=== PATIENT | female | born 1965 | race Caucasian/White ===

== ENCOUNTER 2018-05-28 11:10 | Outpatient (CLI) | payer BC ==
--- NOTE | 2018-05-28 11:59 | RAD ---
RIGHT ANKLE THREE VIEWS: History: Right ankle pain and swelling. FINDINGS/IMPRESSION: Soft tissue swelling is present. The ankle mortise is maintained. No fracture or dislocation or bony destruction is identified. A plantar calcaneal spur is present. POS: OFF
--- NOTE | 2018-05-28 13:15 | RAD ---
RIGHT FOOT THREE VIEWS: 05/28/2018 HISTORY: Pain and swelling. Pain at the plantar aspect of the foot for six months with swelling at the latera l aspect of the right foot. FINDINGS: The Lisfranc joint is normally aligned. There is no fracture-dislocation seen. Plantar calcaneal en thesophyte is seen. IMPRESSION: No acute osseous abnormality right foot. POS: [facility]
== END 2018-05-28 11:11 | disposition home or self-care (01) ==
LOC: BICRAD 11:10
PROVIDERS: ATTEND Family Medicine
DX: M25.471 Effusion, right ankle (principal); M79.671 Pain in right foot; M77.31 Calcaneal spur, right foot; M79.89 Other specified soft tissue disorders

== ENCOUNTER 2024-09-17 10:49 | Outpatient (CLI) | payer BC | END 2024-09-17 10:50 | disposition home or self-care (01) | LOC: BICMRI 10:49 | PROVIDERS: ATTEND Family Medicine | DX: M51.16 Intervertebral disc disorders with radiculopathy, lumbar region (principal) | CPT/HCPCS: 72148 ==